=== PATIENT | female | born 1990 | race Caucasian/White ===

== ENCOUNTER 2016-10-06 21:50 | Emergency (ER) | payer OTHER ==
[~2016-10-06 21:50] MED LIST: ACETAMINOPHEN; BACTRIM DS TABL1 TA1 PO; BACTRIM DS TABL1 TA2 PO; BACTRIM DS TABL1 TAB PO; BENZONATATE PO; FAMOTIDINE PO; FLONASE16 GM; FOLIC ACID1 MG PO; GRALISE1 EACH; KEFLEX PO; KETOPROFEN PO; LEXAPRO; LORTAB 2.5/5001 TAB PO; NO MEDICATIONS; OMEPRAZOLE40 MG PO; PERCOCET 5-3251 TAB PO; PHENERGAN25 MG PO; PREDNISONE PO; PRENATAL VITAMI1 TA5 PO; PRENATAL1 TA1 PO; PYRIDIUM PO; SKELAXIN PO; TRAZODONE; VICODIN 5/500 T1 TAB PO; VOLTAREN75 MG PO; ZOFRAN ODT4 MG PO
[2016-10-06 22:10] LABS: BASOPHIL# 0.1 X10e3 (0-0.3); BASOPHIL% 0.7 % (0-2.5); EOSINOPHIL# 0.1 X10e3 (0-0.7); EOSINOPHIL% 0.8 % (0.0-7.0); HEMOGLOBIN 12.9 gm/dL (12.0-16.0); LYMPHOCYTE# 3.9 X10e3 (1.0-3.5); LYMPHOCYTE% 32.6 % (17.0-45.0); MEAN CELL VOLUME 83.3 FL (83-96); MEAN CORPUSCULAR HEMOGLOBIN 28.2 PG (28-34); MEAN CORPUSCULAR HGB CONC 33.9 g/dL (30-36); MEAN PLATELET VOLUME 8.2 FL (6.5-11.5); MONOCYTE# 0.8 X10e3 (0-1.0); MONOCYTE% 6.5 % (3.0-12.0); NEUTROPHIL# 7.1 X10e3 (1.5-7.1); NEUTROPHIL% 59.4 % (40-75); PLATELET COUNT 270 X10e3 (140-420); RED BLOOD COUNT 4.56 X10e (3.90-5.30); RED CELL DISTRIBUTION WIDTH 14.1 % (11.0-15.5); WHITE BLOOD COUNT 11.9 X10e3 (4.0-10.5)
[2016-10-06 22:11] LABS: DIFF IND NO
[2016-10-06 22:14] LABS: URINE SOURCE CLEAN CATCH
[2016-10-06 22:16] LABS: URINE APPEARANCE CLEAR; URINE BILIRUBIN NEG (NEG); URINE BLOOD NEG (NEG); URINE COLOR YELLOW; URINE GLUCOSE NEG (NORM); URINE KETONE NEG (NEG); URINE LEUKOCYTE ESTERASE NEG (NEG); URINE NITRATE NEG (NEG); URINE PH 5.5 (5-8); URINE PROTEIN NEG (NEG); URINE SPECIFIC GRAVITY 1.025 (1.003-1.035); URINE UROBILINOGEN 0.2 MG/DL (NORM)
[2016-10-06 22:18] LABS: MICRO INDICATED? NO
[2016-10-06 22:33] LABS: ALBUMIN SERUM 3.6 g/dL (3.5-5.0); BILIRUBIN, DIRECT 0.1 mg/dL (0.0-0.2); BILIRUBIN,INDIRECT 0.2 mg/dL (0.0-0.9); BILIRUBIN,TOTAL 0.3 mg/dL (0.2-2.0); BUN/CREATININE RATIO 8.88; CALCIUM SERUM 9.1 mg/dL (8.4-10.2); CREATININE SERUM 0.9 mg/dL (0.6-1.4); GLOM FILT RATE Estimated 87.1 mL/min (>60); POTASSIUM 3.5 mmol/L (3.5-5.1); PROTEIN TOTAL SERUM 6.9 g/dL (6.0-8.3)
== END 2016-10-06 22:52 | disposition home or self-care (01) ==
LOC: SED 21:50
PROVIDERS: Emergency Medicine
DX: K29.00 Acute gastritis without bleeding (principal); F17.200 Nicotine dependence, unspecified, uncomplicated; Z88.2 Allergy status to sulfonamides
CPT/HCPCS: 36415; 80048; 80076; 81003; 82150; 83690; 84703; 85025; 96374; 99284

== ENCOUNTER 2016-10-08 03:23 | Emergency (ER) | payer OTHER ==
--- NOTE | ~2016-10-08 | CT2 ---
[facility] A Service of [facility] RADIOLOGY TEXT RESULTS PATIENT: GLORIA AVILA LOCATION: SED : 86 UNIT #: [id number] AGE: [address]: Nixon Hager MD SEX: F ORDER DR: [id number] [place] [id number] E MR#: [id number] Acc #: [id number] NAME: GLORIA AVILA : 1990 SEX: F STUDY DATE/TIME: 10/08/2016 4:23 UNIT: SED ROOM: STUDY DESCRIPTION: CT Abd and Pelv W Cont Attending Physician: Nixon Hager M.D. Ordering Physician: Nixon Hager M.D. Primary Care Physician: Bennett Cordova M.D. MEDICAL IMAGING REPORT This report is preliminary unless electronic signature is present. EXAM CT abdomen and pelvis with contrast HISTORY 26-year-old female right upper quadrant abdominal pain seen last night, diagnosed with gastritis. Clinical concern for gallbladder disease. TECHNIQUE This CT exam was performed with one or more of the following radiation dose reduction techniques: automatic control, adjustment of mA and/or kV according to patient size, and iterative reconstruction. FINDINGS Axial images performed through the abdomen and pelvis following IV contrast. Multiplanar reconstructed images reviewed at a workstation. ABDOMEN: Lung bases unremarkable. Liver and spleen appear normal. The gallbladder is distended with multiple large gallstones within the gallbladder neck and gallbladder wall thickening and some pericholecystic fluid. Findings suggestive of acute cholecystitis. No evidence of emphysematous cholecystitis. No ductal obstruction. Pancreas, kidneys and adrenal glands unremarkable. Visualized GI tract to include the appendix normal. The retroperitoneum unremarkable. PELVIS: Bladder uterus and adnexa appear normal. Osseous structures and soft tissues unremarkable except for moderate obesity. IMPRESSION Distended gallbladder with multiple gallstones and some pericholecystic fluid and/or gallbladder wall thickening. Findings concerning for acute cholecystitis. No evidence of a biliary obstruction. [facility] A Service of [facility] RADIOLOGY TEXT RESULTS PATIENT: GLORIA AVILA LOCATION: SED : [birth year] UNIT #: [id number] AGE: [address]: Nixon Hager MD SEX: F ORDER DR: Dictated by... Cheryl Holley M.D. THIS IS AN ELECTRONICALLY VERIFIED REPORT Cheryl Holley M.D. at 10/08/2016 5:56 AM TIFFANY/kleber TD: 10/08/2016 05:36 JOB #: [id number] MEDICAL IMAGING REPORT Page 1 of 1
[2016-10-08 03:32] LABS: BASOPHIL# 0.1 X10e3 (0-0.3); BASOPHIL% 0.7 % (0-2.5); EOSINOPHIL# 0.1 X10e3 (0-0.7); EOSINOPHIL% 0.4 % (0.0-7.0); HEMATOCRIT 40.1 % (35.0-45.0); HEMOGLOBIN 13.5 gm/dL (12.0-16.0); LYMPHOCYTE# 2.6 X10e3 (1.0-3.5); LYMPHOCYTE% 19.5 % (17.0-45.0); MEAN CELL VOLUME 83.7 FL (83-96); MEAN CORPUSCULAR HEMOGLOBIN 28.1 PG (28-34); MEAN CORPUSCULAR HGB CONC 33.6 g/dL (30-36); MEAN PLATELET VOLUME 8.5 FL (6.5-11.5); MONOCYTE# 0.9 X10e3 (0-1.0); MONOCYTE% 6.6 % (3.0-12.0); NEUTROPHIL# 9.8 X10e3 (1.5-7.1); NEUTROPHIL% 72.8 % (40-75); PLATELET COUNT 270 X10e3 (140-420); RED BLOOD COUNT 4.79 X10e (3.90-5.30); RED CELL DISTRIBUTION WIDTH 14.3 % (11.0-15.5); WHITE BLOOD COUNT 13.5 X10e3 (4.0-10.5)
[2016-10-08 03:33] LABS: DIFF IND NO
[2016-10-08 03:55] LABS: ALBUMIN SERUM 3.8 g/dL (3.5-5.0); BILIRUBIN, DIRECT 0.1 mg/dL (0.0-0.2); BILIRUBIN,INDIRECT 0.4 mg/dL (0.0-0.9); BILIRUBIN,TOTAL 0.5 mg/dL (0.2-2.0); BUN/CREATININE RATIO 8.75; CALCIUM SERUM 8.7 mg/dL (8.4-10.2); CREATININE SERUM 0.8 mg/dL (0.6-1.4); GLOM FILT RATE Estimated 100.4 mL/min (>60); POTASSIUM 3.7 mmol/L (3.5-5.1); PROTEIN TOTAL SERUM 7.5 g/dL (6.0-8.3)
[2016-10-08 05:19] LABS: INR 1.1; PROTHROMBIN TIME (PATIENT) 12.1 SECONDS (9.5-12.4)
[2016-10-08 05:26] LABS: PARTIAL THROMBOPLASTIN TIME 29.2 SECONDS (25.6-38.1)
== END 2016-10-08 07:16 ==
LOC: SED 03:23
PROVIDERS: Emergency Medicine
DX: K80.00 Calculus of gallbladder with acute cholecystitis without obstruction (principal); F41.9 Anxiety disorder, unspecified; F32.9 Major depressive disorder, single episode, unspecified; F17.200 Nicotine dependence, unspecified, uncomplicated
CPT/HCPCS: 36415; 74177; 80048; 80076; 82150; 83690; 84703; 85025; 85610; 85730; 96365; 96374; 96375; 96376; 99284; 99285; J2270; J2405; J2543; Q9967